=== PATIENT | female | born 1930 | race Caucasian/White ===

== ENCOUNTER 2017-08-10 18:21 | Inpatient (IN) | payer MEDICARE, MEDICAID ==
--- NOTE | 2017-08-10 18:45 | ED Physician Chart ---
ED Chief Complaint/HPI - Patient Information Date Seen:: 08/10/17 Time Seen:: 18:35 Chief Complaint:: increased agitation History of Present Illness:: Patient has reportedly been exhibiting increased screaming and yelling at her [place] [facility] facility Historian:: Patient Review:: Nurse's Note Reviewed, Transfer documents Reviewed ED Review of Systems - Review of Systems General/Constitutional: No fever, No chills, No weight loss, No weakness, No diaphoresis, No edema, No loss of appetite Skin: No skin lesions, No rash, No bruising Head: No headache, No light-headedness Eyes: No loss of vision, No pain, No diplopia ENT: No earache, No nasal drainage, No sore throat, No tinnitus Neck: No neck pain, No swelling, No thyromegaly, No stiffness, No mass noted Cardio Vascular: No chest pain, No palpitations, No PND, No orthopnea, No edema Pulmonary: No SOB, No cough, No sputum, No wheezing GI: No nausea, No vomiting, No diarrhea, No pain, No melena, No hematochezia, No constipation, No hematemesis G/U: No dysuria, No frequency, No hematuria Musculoskeletal: No bone or joint pain, No back pain, No muscle pain Endocrine: No polyuria, No polydipsia Psychiatric: Prior psych history Hematopoietic: No bruising, No lymphadenopathy Allergic/Immuno: No urticaria, No angioedema Neurological: No syncope, No focal symptoms, No weakness, No paresthesia, No headache, No seizure, No dizziness, No confusion, No vertigo ED Past Medical History - Past Medical History Past Medical History: CHF, Asthma/COPD, PUD/GERD, Other (anemia; cardiomegaly) Family History: Other (unavailable) Social History: Care Facility, Other (former smoker) Surgical History: Appendectomy Psychiatricy History: Dementia Family Medical History - Family Member Mother History Unknown: Yes Ethnicity: Non- Living Status: ED Physical Exam - Physical Examination General/Constitutional: Awake, Well-developed, well-nourished, Alert, No distress, GCS 15, Non-toxic appearing, Ambulatory Head: Atraumatic Eyes: Lids, conjuctiva normal, PERRL, EOMI Skin: Nl inspection, No rash, No skin lesions, No ecchymosis, Well hydrated, No lymphadenopathy Other ENMT comments:: Edentulous with upper dentures Neck: Nontender, Full ROM w/o pain, No JVD, No nuchal rigidity, No bruit, No mass, No stridor Respiratory: Nl effort/Exclusion, Clear to Auscultation, No Wheeze/Rhonchi/Rales Cardio Vascular: RRR, No murmur, gallop, rubs, NL S1 S2 Other Cardio Vascular comments:: Heart sounds faint GI: No tenderness/rebounding/guarding, No organomegaly, No hernia, Normal BS's, Nondistended, No mass/bruits, No McBurney tenderness : No CVA tenderness Extremities: No tenderness or effusion, Full ROM, normal strength in all extremities, No edema, Normal digits & nails Neuro/Psych: Alert/oriented, DTR's symmetric, Normal sensory exam, Normal motor strength, Judgement/insight normal, Mood normal, Normal gait, No focal deficits Misc: Normal back, No paraspinal tenderness ED Labs/Radiology/EKG Results - Lab Results Results: Laboratory Results - last 24 hr 08/10/17 08/10/17 18:54 18:54 WBC 4.5 L RBC 3.71 L Hgb 7.8 L* Hct 24.8 L MCH 21.0 L MCHC Differential 31.3 RDW 18.8 Plt Count 351 MPV 7.7 Sodium 136 Potassium 4.9 Chloride 103 Carbon Dioxide 28.3 Anion Gap 9.6 BUN 28 H Creatinine 1.1 Est GFR ( Amer) TNP Est GFR (Non-Af Amer) TNP BUN/Creatinine Ratio 25.5 Glucose 101 Calcium 9.7 Total Bilirubin 0.2 L AST 14 ALT 7 Alkaline Phosphatase 79 Total Protein 6.1 Albumin 3.7 Globulin 2.4 Albumin/Globulin Ratio 1.5 Triglycerides 124 Cholesterol 200 LDL Cholesterol Direct 69 L HDL Cholesterol 92 - EKG Interpretations Rate & Rhythm: normal sinus rhythm with a rate of 56 [place]: normal ED Assessment - Assessment General Assessment: At [address] Contreras of the patient's hemoglobin is 7.8. We agreed patient is hemodynamically stable and may be admitted to [facility] ED Septic Shock - . Is Septic Shock (SBP<90, OR Lactate>4 mmol\L) present?: No ED Reassessment (Disposition) - Reassessment Reassessment Condition:: Unchanged - Diagnosis Diagnosis:: Dementia with agitation; anemia - Patient Disposition Admitted to:: [facility] Spoke to:: Sarwat Contreras Admitting Medical Physician:: Sarwat Contreras Admitting Psych Physician:: Andrei Corona Condition at Disposition:: Stable, Unchanged
[2017-08-10 19:11] LABS: HEMATOCRIT 24.8 % (41.0-60); MEAN CORPUSCULAR HGB CONC 31.3 pg (28.0-36.0); MEAN PLATELET VOLUME 7.7 fl; PLATELET COUNT 351 Th/cmm (150-400); RED BLOOD COUNT 3.71 Mil/cmm (3.80-5.20); RED CELL DISTRIBUTION WIDTH 18.8 % (11.5-20.0); WHITE BLOOD COUNT 4.5 Th/cmm (4.8-10.8)
[2017-08-10 19:19] LABS: MANUAL DIFF REQUIRED? YES
[2017-08-10 19:21] LABS: ALB/GLOB RATIO 1.5 (1.0-1.8); ALBUMIN 3.7 gm/dL (3.7-5.3); ALKALINE PHOSPHATASE 79 U/L (34-104); ANION GAP 9.6 (7.0-16.0); BILIRUBIN,TOTAL 0.2 mg/dL (0.3-1.0); BUN - UREA NITROGEN 28 mg/dL (7-25); CALCIUM SERUM 9.7 mg/dL (8.6-10.3); CARBON DIOXIDE 28.3 mEq/L (21.0-31.0); CHLORIDE 103 mEq/L (98-107); CHOLESTEROL 200 mg/dL (<200); CREATININE - SERUM 1.1 mg/dL (0.6-1.2); GLUCOSE 101 mg/dL (70-105); HDL -HIGH DENSITY LIPOPROTEIN 92 mg/dL (23-92); POTASSIUM SERUM 4.9 mEq/L (3.5-5.1); SGOT 14 U/L (13-39); SGPT/ALT 7 U/L (7-52); SODIUM SERUM 136 mEq/L (136-145); TOTAL PROTEIN,SERUM 6.1 gm/dL (6.0-8.3); TRIGLYCERIDES 124 mg/dL (<150)
[2017-08-10 19:35] LABS: BAND NEUTROPHILE 1 % (0-10); BASOPHIL 0 % (0-3); EOSINOPHIL 2 % (0-5); HYPOCHROMIA 1+; LYMPHOCYTE 33 % (20-50); MONOCYTE 8 % (2-10); NEUTROPHILS 56 % (40-80); PLATELET ESTIMATE ADEQUATE (NORMAL); TOTAL CELLS COUNTED 100
[2017-08-10 21:26] LABS: HEMOGLOBIN 7.8 gm/dL (12-16)
[2017-08-10 21:27] LABS: MEAN CELL VOLUME 66.8 fl (81-100)
[2017-08-11 01:53] VITALS: BP 151/73
[2017-08-11] MEDS ORDERED: Albuterol Nebulizer 2.5mg/3mL HHN PRN (02:47)
[2017-08-11] MEDS ORDERED: Albuterol/Ipratropium Neb 3 ML AERS HHN PRN (02:47)
[2017-08-11] MEDS ORDERED: Magnesium Hydroxide (MOM) 30 mL UDC PO PRN (02:47)
[2017-08-11] MEDS ORDERED: Polyvinyl Alcohol Ophth Soln 15 mL Bottle EACH EYE PRN (03:03)
[2017-08-11] MEDS ORDERED: Guaifenesin DM 10 ML UDC PO PRN (03:05)
[2017-08-11] MEDS: Multivitamin Tab PO SCH (09:27)
[2017-08-11] MEDS: Ferrous Sulfate 325 MG TAB PO SCH ×2 (10:12→17:07)
[2017-08-11] MEDS: Pantoprazole 40 mg EC Tab PO SCH (10:55)
[2017-08-11 20:21] LABS: A1C % 5.3 % (4.0-6.0)
[2017-08-11] MEDS: Acetaminophen 500 MG TAB PO PRN (20:47)
[2017-08-11] MEDS ORDERED: Non-Formulary Item 1 EA (Melatonin [Melatonin] 3 MG) PO SCH (21:00)
--- NOTE | 2017-08-11 21:14 | History & Physical ---
ADMIT DATE: 08/10/2017 INTERNAL MEDICINE CONSULTATION The patient is an 87-year-old female, patient of mine sent to [facility]. PAST MEDICAL HISTORY: Significant for hypertension, COPD, coronary artery disease, peptic ulcer disease, gastritis, arthritis, osteoporosis, and anemia. SOCIAL HISTORY: Prior history of smoking. No history of drug or alcohol abuse. OBSTETRIC HISTORY: P2+0, menses are postmenopausal. REVIEW OF SYSTEMS: The patient has been anxious and agitated. No vomiting, no diarrhea, no melena, no hematochezia. PHYSICAL EXAMINATION: GENERAL: Elderly female in obvious respiratory distress. VITAL SIGNS: Include a blood pressure of 110/70, heart rate 80, respiration rate of 18. SKIN: Showed no obvious cellulitis. HEENT: Pale conjunctivae. NECK: Supple. LUNGS: Show occasional rhonchi, occasional crepitation, no bronchial breathing. HEART: First and second present. ABDOMEN: Soft, minimal epigastric tenderness. Bowel sounds are good. EXTREMITIES: Show arthritis. NEUROLOGIC: The patient has dementia. LABORATORY DATA: Include white count 4.5, hemoglobin 7.8, hematocrit 24.8, platelet count of 351. Sodium 136, potassium 4.9, chloride 103, bicarb 28.3, BUN 28, creatinine 1.1, blood sugar 101. Cholesterol is 200. MEDICAL DIAGNOSES: Include anemia, hypertension, COPD, peptic ulcer disease, gastritis, arthritis, osteoporosis and coronary artery disease. TREATMENT PLAN: The patient's current medicines include lisinopril 40 mg, Plavix 75 mg. The patient received bronchodilator treatment and Tylenol p.r.n. The patient will be started on iron supplementation. The patient also will have Protonix. The patient will have a GI workup done as an outpatient. JOB# [id number]
--- NOTE | 2017-08-12 01:48 | Psychosocial Evaluation ---
DATE OF SERVICE: 08/10/2017 PSYCHIATRIC EVALUATION IDENTIFYING DATA: The patient is an 87-year-old woman, resident of a [facility]. Information obtained directly interviewing the patient as well as reviewing the admission papers and they are reliable. JUSTIFICATION OF HOSPITALIZATION: The patient is admitted here on a voluntary basis in view of her acute agitation and aggressive behavior. CHIEF COMPLAINT: "I don't know." HISTORY OF PRESENT ILLNESS: This is the first psychiatric hospitalization to [facility] for this patient who is reported to have been screaming and yelling at the care home facility and could not be contained at a lower level of care. The patient has been reported to have multiple medical problems such as congestive heart failure, asthma, GERD and anemia and the patient is reported to have been getting out of control and hence the patient has been brought over here for stabilization. Of significant, the patient's hemoglobin is noted to be 7.8 and hematocrit 24.8 at the time of the evaluation. MEDICAL HISTORY: Physical examination was requested to be done by Dr. Contreras. SUBSTANCE ABUSE HISTORY: None. PHYSICAL OR SEXUAL ABUSE HISTORY: None. LEGAL PROBLEMS: None at this time. STRENGTH AND ASSETS: The patient is motivated. SOCIAL HISTORY: The patient is a resident of a [facility]. MENTAL STATUS EXAMINATION: The patient is an 87-year-old woman, thin built, superficially cooperative. Eye contact is poor. Mood is depressed. Affect is constricted. Insight and judgment at this time are noted to be very much impaired. Impulse control is noted to be limited. The patient has been screaming and yelling, but the patient needs to be redirected. The patient has been currently on Paxil and I have decided to slowly change the Paxil to Lexapro and Lexapro 5 mg is going to be requested and the patient's Paxil is going to be slowly discontinued. The patient's behavior at this time is a clear danger. The patient has short-term as well as long-term memory deficits. The patient is not able to contract for safety. DIAGNOSTIC IMPRESSION: AXIS I: Major depressive disorder, recurrent and moderate. AXIS IB: Dementia and behavioral change, secondary trait. AXIS II: None. AXIS III: As per Dr. Contreras. IMMEDIATE TREATMENT PLAN: The patient is going to be closely monitored. Encouraged to verbalize the concerns rather than to act out. The patient is going to be placed on the Lexapro and Paxil is going to be discontinued. The patient is going to be closely monitored. ESTIMATED LENGTH OF STAY: 3-5 days. DISCHARGE CRITERIA: When she no longer a threat to self or others and be able to cope up with the stress. JOB# [id number]
[2017-08-12] MEDS: Acetaminophen 500 MG TAB PO PRN ×2 (06:15→23:31)
[2017-08-12] MEDS: Pantoprazole 40 mg EC Tab PO SCH (06:33)
[2017-08-12] MEDS: Escitalopram Oxalate 5 mg Tab PO SCH (09:16)
[2017-08-12] MEDS: Ferrous Sulfate 325 MG TAB PO SCH ×2 (09:18→16:33)
[2017-08-12] MEDS: Multivitamin Tab PO SCH (09:19)
--- NOTE | 2017-08-12 17:54 | Progress Notes ---
DATE: 08/12/2017 SUBJECTIVE: Staff was spoken to. The patient is interviewed. Mood is noted to be depressed. Affect is constricted. The patient is isolative and withdrawn. Insight and judgment at this time are noted to be still impaired. Impulse control is noted to be limited. Coping skills are noted to be limited. ASSESSMENT: The patient is still depressed. PLAN: To continue the patient with the Lexapro. I encouraged the patient to verbalize the concerns rather than to act out. JOB# [id number]
[2017-08-13] MEDS: Pantoprazole 40 mg EC Tab PO SCH (06:44)
[2017-08-13] MEDS: Escitalopram Oxalate 5 mg Tab PO SCH (08:50)
[2017-08-13] MEDS: Multivitamin Tab PO SCH (08:51)
[2017-08-13] MEDS: Ferrous Sulfate 325 MG TAB PO SCH ×2 (08:51→17:24)
--- NOTE | 2017-08-13 15:17 | Progress Notes ---
DATE: 08/12/2017 SUBJECTIVE: The patient does not present any threat to harm self or others. ASSESSMENT: The patient is still depressed. PLAN: To continue the patient with supportive therapy and followup. [facility]# [id number]
[2017-08-13] MEDS: Acetaminophen 500 MG TAB PO PRN (22:27)
--- NOTE | 2017-08-14 01:02 | Consultation ---
DATE OF CONSULTATION: 08/12/2017 REFERRING PHYSICIAN: Andrei Corona M.D. TYPE OF CONSULTATION: Psychology. HISTORY OF PRESENT ILLNESS: The patient is an 87-year-old female. The patient is a resident of [facility]. The patient is known to and in the care of this senior technical writer from the patient's placement. The following is by record review and by patient's self report. The patient was [facility]. The patient had become more confused as well as depressed with intermittent screaming and yelling episodes. The patient is being admitted due to that acute agitation and aggressive behavior. The patient was recommended to be transferred here for stabilization. The patient denied any suicidal ideation, plan or intention. The patient did express futility and purposelessness with respect to reason to continue living. The patient has no active ideation. The patient is experiencing hopelessness and helplessness. PAST MEDICAL HISTORY: Please see history and physical by Dr. Contreras. PAST PSYCHIATRIC HISTORY: The patient has a history of dementia. The patient is seen by both Psychiatry and Psychology at her [facility] facility. SUBSTANCE ABUSE HISTORY: None. FAMILY HISTORY: The patient has a very supportive daughter who is involved in her care. SOCIAL HISTORY: The patient is a resident of [facility]. The patient has no history of physical or sexual abuse. The patient has no current legal problems. The patient has no specific quaker affiliation. MENTAL STATUS EXAMINATION: The patient appears to be her stated age. The patient's attitude is guarded, but superficially cooperative at times. Eye contact is poor. Mood is depressed. Affect is constricted. Thought process is confused and tangential. The patient denied any suicidal ideation, plan or intention. However, the patient does admit to feeling futility with respect to reasons to continue living. The patient's behavior on the unit has been difficult at times to redirect, but the patient does respond to persistent verbal redirection. There have been some yelling episodes. Impulse control is poor. Concentration is poor. Sensorium is alert and oriented to self only. The patient did not participate in the memory assessment. The patient did not participate in the interpretation of proverbs. The patient's history includes cognitive deficits which include short-term and long-term memory impairment. The patient is having difficulty recalling this senior technical writer. The patient is unable to contract for safety. Insight is impaired. Judgment is impaired. DIAGNOSTIC IMPRESSION: AXIS I: 1. History of dementia with behavioral disturbance. 2. Major depressive disorder, recurrent, moderate. AXIS II: Deferred. AXIS III: Please see history and physical by Dr. Contreras. TREATMENT PLAN: The patient has been seen by Dr. Corona for psychiatric evaluation and for the management of the patient's psychotropic medications. The patient had been on Paxil. The psychiatrist is changing the Paxil to Lexapro 5 mg and the Paxil to be slowly discontinued. We will provide supportive psychotherapy to include reality orientation, reality differentiation and reality integration. We will provide de-escalation and limit setting. We will provide motivational enhancement for the patient to become compliant and stay compliant with all aspects of her care and treatment plan. We will provide coping strategies for phase of life issues. We will provide multiple opportunities daily for the patient to verbally contract for safety and no self-harm. We will provide stress management to assist the patient increasing her frustration tolerance as well as reducing the patient's depression. We will continue to provide supportive therapy and coping strategies and skills throughout her hospital course. Thank you, Dr. Corona for this consult and the opportunity to participate in this patient's care. [facility]# [id number] KAREN
[2017-08-14] MEDS: Pantoprazole 40 mg EC Tab PO SCH (06:34)
[2017-08-14] MEDS: Ferrous Sulfate 325 MG TAB PO SCH ×2 (09:49→17:51)
[2017-08-14] MEDS: Escitalopram Oxalate 5 mg Tab PO SCH (09:49)
[2017-08-14] MEDS: Multivitamin Tab PO SCH (09:49)
[2017-08-14] MEDS: Acetaminophen 500 MG TAB PO PRN (20:33)
--- NOTE | 2017-08-15 01:43 | Progress Notes ---
DATE: 08/14/2017 SUBJECTIVE: Staff was spoken to. The patient is interviewed. Mood is noted to be irritable. Affect is constricted. Insight and judgment are noted to be still impaired. The patient has been getting agitated, screaming and yelling. No side effects to the medications are noted. The patient has to be redirected. ASSESSMENT: The patient is still depressed. PLAN: To continue the patient with Lexapro and followup. JOB# [id number]
[2017-08-15] MEDS: Pantoprazole 40 mg EC Tab PO SCH (06:48)
[2017-08-15] MEDS: Multivitamin Tab PO SCH (08:30)
[2017-08-15] MEDS: Ferrous Sulfate 325 MG TAB PO SCH ×2 (08:30→17:25)
[2017-08-15] MEDS: Escitalopram Oxalate 5 mg Tab PO SCH (08:31)
[2017-08-15] MEDS: Acetaminophen 500 MG TAB PO PRN (20:08)
--- NOTE | 2017-08-16 01:06 | Progress Notes ---
DATE: 08/15/2017 PSYCHIATRIC PROGRESS NOTE SUBJECTIVE: Staff was spoken to. The patient is interviewed. Mood is noted to be less irritable. Affect is constricted. The patient has paranoia, but denies any command hallucinations. Insight and judgment are noted to be improving. Impulse control seems to be fair. ASSESSMENT: The patient's screaming and yelling also has been coming down. PLAN: No side effects of the Lexapro is noted. The patient has sundowning syndrome, but the patient is not presenting with any major concerns. JOB# [id number]
--- NOTE | 2017-08-16 03:18 | Progress Notes ---
DATE: 08/15/2017 CHIEF COMPLAINT: No chest pain, not short of breath. No nausea. No vomiting. No headache. No melena. No hematochezia. No recent fall. Gait remains unstable. OBJECTIVE: VITAL SIGNS: Stable. LUNGS: Shows occasional rhonchi, occasional crepitation, no bronchial breathing. HEART: First and second heart sound normal. No gallop or rub. ____ present. ABDOMEN: Soft. Bowel sounds appeared good. EXTREMITIES: Show arthritis. NEUROLOGIC: The patient has early dementia. MEDICAL DIAGNOSES: Remain the same as chronic obstructive pulmonary disease, hypertension, coronary artery disease, arthritis, osteoporosis, peptic ulcer disease, gastritis, and anemia. TREATMENT PLAN: The patient will continue with current medicines. Psych consult reviewed. JOB# [id number]
[2017-08-16] MEDS: Pantoprazole 40 mg EC Tab PO SCH (06:30)
[2017-08-16] MEDS: Ferrous Sulfate 325 MG TAB PO SCH ×2 (09:13→16:27)
[2017-08-16] MEDS: Multivitamin Tab PO SCH (09:13)
[2017-08-16] MEDS: Escitalopram Oxalate 5 mg Tab PO SCH (09:13)
--- NOTE | 2017-08-17 00:16 | Progress Notes ---
DATE: 08/16/2017 SUBJECTIVE: Staff was spoken to. The patient is interviewed. Mood is noted to be depressed. Affect is constricted. The patient is isolative and withdrawn. Insight and judgment are noted to be still impaired. Impulse control seems to be improving. The patient's coping skills are noted to be improving. The patient has been having difficult time to cope with the stress and has been screaming and yelling towards the end of the day. No side effects to the Lexapro are noted. PLAN: To increase the dose of the Lexapro to 10 mg and discontinue the Paxil and follow the patient with supportive therapy. Please note that the patient has been having difficult time to cope with the stress and is not ready to be discharged to a lower level of care yet. JOB# [id number]
--- NOTE | 2017-08-17 02:49 | Progress Notes ---
DATE: 08/16/2017 SUBJECTIVE: No new symptoms. No shortness of breath. No vomiting. No diarrhea. No melena. No hematochezia. No dizziness. OBJECTIVE: VITAL SIGNS: Stable. LUNGS: Occasional rhonchi, occasional crepitation. No bronchial breathing. HEART: First and second are normal. No gallop, no rub. ____ present. ABDOMEN: Soft. Bowel sounds are good. EXTREMITIES: Show arthritis. NEUROLOGIC: No focal motor deficits. MEDICAL DIAGNOSES: Remain the same. Chronic obstructive pulmonary disease, hypertension, coronary artery disease, arthritis, anemia, peptic ulcer disease, gastritis, osteoporosis, and history of vertigo. PLAN: Continue current management. Psych consultation reviewed. JOB# [id number]
[2017-08-17] MEDS: Pantoprazole 40 mg EC Tab PO SCH (06:49)
[2017-08-17] MEDS: Ferrous Sulfate 325 MG TAB PO SCH ×2 (08:22→16:26)
[2017-08-17] MEDS: Multivitamin Tab PO SCH (08:22)
[2017-08-17] MEDS ORDERED: Escitalopram Oxalate 5 mg Tab PO SCH (09:00)
--- NOTE | 2017-08-18 21:05 | Progress Notes ---
DATE: 08/17/2017 INTERNAL MEDICINE CONSULTATION FOLLOWUP SUBJECTIVE: The patient is an 87-year-old female, seen at [facility]. COPD, hypertension, coronary artery disease, peptic ulcer disease, gastritis, arthritis, osteoporosis. No new symptoms. OBJECTIVE: VITAL SIGNS: Stable. LUNGS: Show occasional rhonchi, occasional crepitation, no bronchial breathing. HEART: First and second present. ABDOMEN: Soft. Bowel sounds present. EXTREMITIES: Show arthritis. NEUROLOGIC: The patient has dementia. DIAGNOSIS: As I dictated above. PLAN: Continue current medicines. Continue with the psych treatment. JOB# [id number]
== END 2017-08-17 16:55 | DRG 885 ==
LOC: ER 18:21 → GERO2 19:30
PROVIDERS: ADMIT Psychiatry & Neurology Psychiatry; ATTEND Psychiatry & Neurology Psychiatry
DX: F33.1 Major depressive disorder, recurrent, moderate (principal); I11.0 Hypertensive heart disease with heart failure; F03.91 Unspecified dementia, unspecified severity, with behavioral disturbance; I50.9 Heart failure, unspecified; J44.9 Chronic obstructive pulmonary disease, unspecified; K21.9 Gastro-esophageal reflux disease without esophagitis; D64.9 Anemia, unspecified; I25.10 Atherosclerotic heart disease of native coronary artery without angina pectoris; M19.90 Unspecified osteoarthritis, unspecified site; M81.0 Age-related osteoporosis without current pathological fracture; K27.9 Peptic ulcer, site unspecified, unspecified as acute or chronic, without hemorrhage or perforation; K29.70 Gastritis, unspecified, without bleeding; Z90.49 Acquired absence of other specified parts of digestive tract
CPT/HCPCS: 36415-UA; 80053-TC; 80061-TC; 83036-90; 84443-TC; 85007-TC; 85025-TC; 85027-TC; 86592-TC; 93005; 94640; 94760; Z7610